=== PATIENT | male | born 1980 | race Two or more races ===

== ENCOUNTER 2016-06-20 19:11 | Emergency (ER) | payer SELFPAY ==
[~2016-06-20] VITALS: Ht 160 cm; Wt 59.0 kg
[2016-06-20 19:41] VITALS: BP 120/83
== END 2016-06-21 01:30 | disposition left against medical advice (07) ==
LOC: ER 19:13
DX: J02.9 Acute pharyngitis, unspecified (principal); Z53.21 Procedure and treatment not carried out due to patient leaving prior to being seen by health care provider